=== PATIENT | male | born 1950 | race Caucasian/White ===

== ENCOUNTER 2023-12-04 11:21 | Outpatient (CLI) | payer MEDICARE, SELFPAY ==
--- NOTE | 2023-12-04 11:34 | ECG_ITS ---
Measurements Intervals Fults Rate: 70 P: 11 AZ: 155 QRS: -22 QRSD: 93 T: 22 QT: 375 QTc: 405 Interpretive Statements SINUS RHYTHM DELAYED PRECORDIAL R/S TRANSITION BASELINE ARTIFACT- I, II, III, AVR, AVL, AVF, V1, V3 BORDERLINE ECG NO PREVIOUS ECG AVAILABLE FOR COMPARISON Electronically Signed On 12-04-2023 12:46:22 CDT by John Bueno D.O.
[2023-12-04 12:04] LABS: Basophils Percent Auto 0.3 % (0.2-1.2); Eosinophils Absolute Auto 0.1 K/mm3 (0-0.3); Eosinophils Percent Auto 1.1 % (0-4.4); Hematocrit 37.2 % (42.0-52.0); Hemoglobin 12.3 g/dL (14.0-18.0); Immature Granulocyte Absolute 0.05 K/mm3 (0.00-0.031); Immature Granulocyte Percent A 0.5 % (0-0.5); Lymphocytes Absolute Auto 1.74 K/mm3 (0.9-3.2); Lymphocytes Percent Auto 18.8 % (18.3-44.2); Mean Corpuscular HGB Conc 33.1 g/dl (32-36); Mean Corpuscular Hemoglobin 30.2 pg (26-34); Mean Corpuscular Volume 91.4 fl (80-100); Mean Platelet Volume 9.2 fl (7.4-10.4); Monocytes Absolute Auto 0.6 K/mm3 (0.1-0.6); Monocytes Percent Auto 6.1 % (2.6-8.5); Neutrophils Absolute Auto 6.8 K/mm3 (1.3-6.7); Neutrophils Percent Auto 73.2 % (45.5-73.1); Platelet Count Result 516 k/mm3 (150-375); Red Blood Count 4.07 M/mm3 (4.6-6.20); Red Cell Distribution Width 13.5 % (11.5-14.5); White Blood Count 9.3 K/mm3 (4.5-10.0)
[2023-12-04 12:14] LABS: Anion Gap 5 mmol/L (8-16); Blood Urea Nitrogen 16 mg/dL (9-20); Calcium 9.6 mg/dL (8.4-10.2); Carbon Dioxide 26 mmol/L (22-30); Chloride 104 mmol/L (98-107); Estimated Glomerular Filt Rate > 60; Glucose 103 mg/dL (65-110); Potassium 4.3 mmol/L (3.4-5.0); Sodium 135 mmol/L (137-145)
[2023-12-04 12:18] LABS: INR 0.9; Prothrombin Time 12.7 Seconds (11.1-14.7)
[2023-12-04 12:19] LABS: Partial Thromboplastin Time 26.6 Seconds (22.3-36.8)
== END 2023-12-04 11:22 | disposition home or self-care (01) ==
LOC: ANHSURGERY 11:31
PROVIDERS: PCP Family Medicine; Visit Provider Urology
DX: Z01.818 Encounter for other preprocedural examination (principal); N21.0 Calculus in bladder; E78.00 Pure hypercholesterolemia, unspecified
CPT/HCPCS: 36415; 80048; 85025; 85610; 85730; 87086; 87088; 93005

== ENCOUNTER 2023-12-09 01:19 | Day surgery (SDC) | payer MEDICARE, SELFPAY ==
[2023-12-03 11:28] VITALS: BMI 26.2
--- NOTE | 2023-12-03 11:39 | PC.NURSE ---
PRE-OP INSTRUCTIONS, PLEASE READ CAREFULLY Report to the Outpatient Waiting Room, entrance under the green pavilion located off [facility], at time _1100_ on date _12/09/23_. Planned Procedure Time: _1 PM_. PACK A SMALL OVERNIGHT BAG AND LEAVE IN THE CAR Time changes happen often and if your time is changed the preop area will call you the afternoon before. - You and your visitor will be asked to self-screen and do not enter if you have any COVID symptoms. - A mask is optional within the hospital at this time. -VISITING HOURS 8AM-8PM Patients may have clear liquids (water, carbonated beverages, clear teas, apple juice) until 3 hours prior to surgery (1000 AM) with a maximum of 20 ounces. - No food from midnight until time of surgery Take the following medications with a SIP of water the morning of surgery: _NONE_ DO NOT STOP ANY OF YOUR OTHER PRESCRIPTION MEDICATIONS PRIOR TO SURGERY ?EXCEPT THE FOLLOWING Medications to discontinue per ANESTHESIA - _ALL VITAMINS AND SUPPLEMENTS 3 DAYS PRIOR TO SURGERY, Date to take last dose 12/05/23_ Please no make-up, nail thai, hairspray, perfume, deodorant, or body powder the day of surgery. No jewelry (including any body piercings) or valuables the day of surgery, leave them at home. Please take a shower or bath the night before, or the morning of, surgery with an antibacterial soap. Wear comfortable, loose fitting clothing. - Jewelry must be removed prior to entering the operating room. Rings and piercings that are not removed may be cut off. - The hospital will not accept responsibility for valuables. - Please leave all valuables, including medications, at home the day of surgery. If you are going home after surgery, a licensed school boat driver must drive you home. - NO public transportation without another adult if you receive anesthesia. - We recommend that an adult stay with you for 24 hours following discharge. - We also recommend that you do not drive, make important decision, drink alcoholic beverages, or take any drugs that were not prescribed by your health care provider for at least 24 hours after your discharge time. Follow any additional instructions given to you from your surgeon. If you or anyone in your household have experienced Covid symptoms in the past week, please notify your surgeon or the nurse liaison at the phone number below for possible testing. Telephone instructions given to _PT'S SPOUSE JOHN_and asked if any additional questions and then verbalized understanding. Patient advised to call surgeon office or pre surgery nurse liaison [phone] if any additional questions.
[2023-12-09] VITALS (12 sets, daily range): BP systolic 113–156; BP diastolic 51–79; PULSE 70–80; RESP 13–22; TEMP 35.9–37.5; O2SAT 97–100; BMI 24.9
--- NOTE | 2023-12-09 09:30 | WPDHPUPDATE1 ---
History and Physical Update Update Date/Time: 12/09/23 09:30 History and Physical has been reviewed, including an updated exam of the patient. There are NO changes in the patient's condition. Risks, benefits, and alternatives have been discussed and questions answered. Patient agrees to proceed with procedure. Proceed with cystoscopy, holmium laser of bladder stones, possible TURP
[2023-12-09] MEDS: LACTATED RINGERS 1,000 ML 30 ML IV CONT (10:45)
--- NOTE | 2023-12-09 11:47 | WPDANESEPPF ---
Anes - Initial Pre Proc Eval Procedure: Operation Date: 12/09/23 12:30 Proposed Procedures p Transurethral Resection of Prostate - Brandon Mosqueda MD s Cystoscopy, Holmium Laser Lithotripsy of Bladder Stones - Brandon Mosqueda MD Date/Time: 12/09/23 11:47 Surgeon: Brandon Mosqueda MD Pre Op Diagnosis: bladder stone, bph, retention of urine Patient Data Age: 73 Gender: M Height: 1.7 m Weight: 73.8 kg Last Vital Signs Temp 97.3 F L 12/09/23 10:50 Pulse 80 12/09/23 10:50 Resp 16 12/09/23 10:50 BP 149/67 H 12/09/23 10:50 Pulse Ox 100 12/09/23 10:50 O2 Del Method Room Air 12/09/23 10:50 Allergies Allergy/AdvReac Type Severity Reaction Status Date / Time No Known Allergies Allergy Verified 12/09/23 10:49 Home Medications Medication Instructions Recorded Confirmed Type Lactobacillus rhamnosus-Bifidobac. 1 cap PO DAILY 12/03/23 12/09/23 History animalis 3 billion cell capsule ([employer]) Prevagen 1 tab-cap DAILY 12/03/23 12/09/23 History Pro Cap Circulation & Vein Sup 1 tab-cap BID 12/03/23 12/09/23 History Pro Cap Eye Support 1 tab-cap BID 12/03/23 12/09/23 History Pro Cap Pc Liver And Brain 2 tab-cap DAILY 12/03/23 12/09/23 History Prosta Genix 1 tab-cap DAILY 12/03/23 12/09/23 History atorvastatin 20 mg tablet 20 mg DAILY 12/03/23 12/09/23 History calcium carbonate 500 mg calcium 1,000 mg PO DAILY 12/03/23 12/09/23 History (1,250 mg) chewable tablet cephalexin 500 mg capsule 500 mg Q6H 12/03/23 12/09/23 History coenzyme Q10 100 mg capsule 200 mg PO DAILY 12/03/23 12/09/23 History (CoQ-10) docusate sodium 100 mg capsule 100 mg PO BID 12/03/23 12/09/23 History gabapentin 100 mg capsule 100 mg HS 12/03/23 12/09/23 History krill oil 500 mg capsule 500 mg PO DAILY 12/03/23 12/09/23 History multivitamin 1 tablet DAILY 12/03/23 12/09/23 History Patient hx anesthesia problems: none Family hx anesthesia problems: none Results Review: All pre-operative results and documents have been reviewed as part of the pre-operative evaluation. [facility] Social History Social History Smoking status: Never smoker Second hand tobacco smoke exposure: No Alcohol intake: never Substance use: never Substance use type: does not use Living arrangements: with family Spiritual care concerns: No Anes - Eval Final PreProcedure Day of Procedure 12/09/23 11:47 Patient weight: normal Heart: regular rate and rhythm Lungs: clear to auscultation Airway: Mallampati scale class II Neurological: alert and oriented Last oral intake: >/= 8 hours ASA classification: III Emergent: no Anesthetic plan: proceed Anesthesia type and monitoring: general LMA and standard monitoring Results Review: All pre-operative results and documents have been reviewed as part of the pre-operative evaluation. Informed Consent: The patient's anesthetic plan and its attendant risks and benefits were discussed with the patient/family/POA. Questions were solicited and answers provided to the satisfaction of the patient/family/POA.
--- NOTE | 2023-12-09 15:17 | P.OP_ITS ---
Procedure Note - Detailed Date of Procedure 12/09/23 Pre-op Diagnosis bladder stone, bph, retention of urine Post-op Diagnosis Same Procedure Performed Cystoscopy, extensive holmium laser of 7 bladder calculi 2-3 cm each, transurethral resection of prostate Surgeon Brandon Mosqueda MD Anesthesia General Description of Procedure Patient was taken to the operative suite correctly identified. Once anesthesia was obtained was placed in dorsal lithotomy position and prepped and draped usual sterile fashion. Twenty-two Macanese scope was inserted in the bladder. Is difficult to inspect the bladder because it was filled with 7 large stones ranging from 2-3 cm. Using a 500 micron fiber we lasered the stones and retrieve the pieces. It filled 100 cc sterile cup. At this point I reinspected the bladder but did not see any residual stones. I then did a transurethral resection the prostate by exchanging scope up for a 24 Macanese resectoscope sheath. I resected from the bladder neck to the verumontanum circumferentially. Hemostasis was achieved using electrocautery. I then reinspected the bladder in noted that there was a another large stone which was actually stuck in the diverticulum. At this point there was some oozing from the prostatic bed or the TURP was done and I could not visualize at complete take care stone in this. Was decided to terminate the procedure to address at a later point time. 2% viscous lidocaine was inserted into the urethra. Twenty-four Macanese [address] was placed with 20 cc in balloon. This was connected to continuous bladder irrigation. He was taken recovery room in stable condition. This completes dictation. Please send a copy of op note to my office. Estimated Blood Loss 25 Drains Yes Packing No Pathology Yes Complications No immediate complications Condition Stable Disposition PACU
[2023-12-09] MEDS: LIDOCAINE HCL 2% GEL UROJET 10 ML PKG MUCOUS MEM (15:20)
[2023-12-09] MEDS: ONDANSETRON INJ 4 MG/2 ML VIAL IV PUSH (15:57)
[2023-12-09] MEDS: fentaNYL CITRATE INJ (*CRX) 100 MCG/2 ML VIAL 25 MCG IV PUSH ×3 (15:59→16:39)
--- NOTE | 2023-12-09 17:05 | ADMGEN ---
This patient, Brown Balderas, was admitted to [facility] Surg Room 302-01. Patient/family oriented to hospital policies and general routines including ID bracelet, bed and alarms, visiting hours, pain management, procedures, bathroom and other care routines, personal items, smoking policy, room service/diet, and visiting hours. Information on how to activate the Rapid Response Team has been discussed. Patient/Family are encouraged to report perceived risks to care and to ask questions if they do not understand what they are told or what they should do.
--- NOTE | 2023-12-09 18:37 | PC.NURSE ---
On 12/09/23, the HYDROELECTRIC OPERATOR, JOSE GUERRERO provided care and completed [employer] documentation on this patient. I have reviewed the HYDROELECTRIC OPERATOR's documentation and agree with the findings.
--- NOTE | 2023-12-09 18:39 | PC.NURSE ---
On 12/09/23, the WELFARE ADMINISTRATOR, JOSE GUERRERO provided care and completed [employer] documentation on this patient. I have reviewed the WELFARE ADMINISTRATOR's documentation and agree with the findings.
[2023-12-09] MEDS: DEXTROSE 5%/LACTATED RINGERS 1,000 ML 125 ML IV CONT (19:02)
[2023-12-09] MEDS: DOCUSATE SODIUM 100 MG CAPSULE PO (19:05)
[2023-12-09] MEDS: ceFAZolin 1 GM/NS 50 ML 1 GM/50 ML BAG IVPB (19:05)
[2023-12-09] MEDS: GABAPENTIN 100 MG CAPSULE BY MOUTH (20:50)
[2023-12-10] MEDS: ceFAZolin 1 GM/NS 50 ML 1 GM/50 ML BAG IVPB (01:13)
[2023-12-10 02:32] VITALS: BP 117/53; PULSE 73; RESP 13; TEMP 37.1; O2SAT 99
[2023-12-10] MEDS: DEXTROSE 5%/LACTATED RINGERS 1,000 ML 125 ML IV CONT (05:12)
[2023-12-10 05:48] VITALS: BP 124/53; PULSE 75; RESP 12; TEMP 37.2; O2SAT 99
[2023-12-10 07:17] LABS: Hematocrit 32.8 % (42.0-52.0); Hemoglobin 10.6 g/dL (14.0-18.0)
[2023-12-10 07:45] VITALS: BP 116/50; PULSE 72; RESP 18; TEMP 35.8; O2SAT 99
[2023-12-10 07:46] LABS: Anion Gap 2 mmol/L (8-16); Blood Urea Nitrogen 9 mg/dL (9-20); Calcium 8.2 mg/dL (8.4-10.2); Carbon Dioxide 26 mmol/L (22-30); Chloride 105 mmol/L (98-107); Estimated CRCL calculation 66 ml/min; Estimated Glomerular Filt Rate > 60; Glucose 127 mg/dL (65-110); Potassium 3.5 mmol/L (3.4-5.0); Sodium 133 mmol/L (137-145)
--- NOTE | 2023-12-10 08:15 | WPDUROPN2 ---
Progress Note: A&P Assessment and Plan (1) Bladder calculi: Code(s): N21.0 - Calculus in bladder Status: Acute Assessment and Plan: Postop day 1 from extensive holmium laser of at least 7 large bladder calculi 2-3 cm each. He has 1 -2residual stone which will need to be addressed at a later point time. (2) Urinary retention: Code(s): R33.9 - Retention of urine, unspecified Status: Acute Assessment and Plan: Postop day 1. From TURP. Urine is clear at this time. Hold CBI. If remains clear will discharge home with Gutiérrez catheter. Will schedule holmium laser of residual bladder stones in the next week or 2. Subjective Subjective Date/Time Seen: 12/10/23 08:15 Post Op day: 1 (Holmium laser bladder stones and TURP) Principal diagnosis: Significant bladder stones with urinary retention Interval history: Doing well postoperative day 1. Urine is clear with minimal CBI. Will hold off on CBI this. Review of Systems Review of Systems: All systems reviewed & are unremarkable except as noted in HPI and below Exam Const: General: comfortable Resp: Effort & Inspection: normal respiratory effort Cardio: Rate: regular rate Rhythm: regular rhythm Urinary Catheter: Urinary Catheter: patent and draining and urine clear Objective Data Vital Signs Vital Signs: Vital Signs - 24 hr 12/09/23 10:50 12/09/23 15:16 12/09/23 15:31 Temperature 36.3 C L 37.5 C Pulse Rate 80 73 76 Respiratory Rate 16 21 H 15 Blood Pressure 149/67 H 113/51 L 133/79 Pulse Oximetry 100 100 100 Oxygen Delivery Room Air Simple Face Mask Simple Face Mask Oxygen Flow Rate 10 10 12/09/23 15:46 12/09/23 16:01 12/09/23 16:16 Temperature Pulse Rate 74 70 70 Respiratory Rate 17 15 21 H Blood Pressure 140/70 139/65 128/65 Pulse Oximetry 97 100 99 Oxygen Delivery Room Air Room Air Room Air Oxygen Flow Rate 12/09/23 16:32 12/09/23 16:47 12/09/23 16:58 Temperature 35.9 C L Pulse Rate 74 74 72 Respiratory Rate 22 H 17 16 Blood Pressure 139/62 139/64 156/76 H Pulse Oximetry 100 100 100 Oxygen Delivery Room Air Room Air Oxygen Flow Rate 12/09/23 17:13 12/09/23 17:43 12/09/23 22:08 Temperature 36.2 C L 36.1 C L 36.9 C Pulse Rate 71 78 75 Respiratory Rate 16 16 13 Blood Pressure 140/62 141/66 H 127/60 Pulse Oximetry 97 100 100 Oxygen Delivery Oxygen Flow Rate 12/09/23 20:00 12/10/23 02:32 12/10/23 05:48 Temperature 37.1 C 37.2 C Pulse Rate 73 75 Respiratory Rate 13 12 Blood Pressure 117/53 L 124/53 L Pulse Oximetry 99 99 Oxygen Delivery Room Air Oxygen Flow Rate Intake/Output Intake/Output: Intake & Output 12/07/23 12/08/23 12/09/23 12/10/23 23:59 23:59 23:59 23:59 Intake Total 400 2000 Output Total 3475 1800 Balance -3075 200 Meds/Results Medications: Active Medications Generic Name Dose Route Start Last Admin Trade Name Freq PRN Reason Stop Dose Admin Hydrocodone Bitart/Acetaminophen 1 tab 12/09/23 16:58 Hydrocodone/Acetaminophen (*Crx) 5-325 Mg Tablet PO Q4H PRN Pain Rated 1-6 Atorvastatin Calcium 20 mg 12/10/23 09:00 Atorvastatin 20 Mg Tablet BY MOUTH DAILY SHA Cephalexin HCl 500 mg 12/10/23 09:00 Cephalexin 500 Mg Capsule PO QID SHA Docusate Sodium 100 mg 12/09/23 17:00 12/09/23 19:05 Docusate Sodium 100 Mg Capsule PO 100 mg BID SHA Administration Gabapentin 100 mg 12/09/23 21:00 12/09/23 20:50 Gabapentin 100 Mg Capsule BY MOUTH 100 mg HS SHA Administration Hyoscyamine 0.125 mg 12/09/23 16:58 Hyoscyamine Sulfate 0.125 Mg Tablet SUBLINGUAL Q6H PRN Bladder Spasm Dextrose/Lactated Ringer's 1,000 mls @ 125 mls/hr 12/09/23 16:58 12/10/23 05:13 Dextrose 5%/Lactated Ringers IV CONT Not Given .Q8H SHA Morphine Sulfate 2 mg 12/09/23 16:58 Morphine Sulfate (*Crx) 2 Mg/Ml Inj IV PUSH Q2H PRN Pain Rated 7-10 Naloxone HCl 0.1 mg
[2023-12-10] MEDS: CEPHALEXIN 500 MG CAPSULE PO ×2 (08:33→12:06)
[2023-12-10] MEDS: DOCUSATE SODIUM 100 MG CAPSULE PO (08:34)
[2023-12-10] MEDS: ATORVASTATIN 20 MG TABLET BY MOUTH (08:34)
[2023-12-10 10:43] VITALS: BP 121/53; PULSE 76; RESP 18; TEMP 36.2; O2SAT 97
--- NOTE | 2023-12-10 11:55 | PM.DS ---
DS: Admitting Diagnosis Discharge Date 12/10/2023 Admitting Diagnosis Bladder stone, BPH, retention of urine DS: Discharge Diagnosis Discharge Diagnosis (1) Bladder calculi: Code(s): N21.0 - Calculus in bladder Status: Acute Assessment and Plan: Postop day 1 from extensive holmium laser of at least 7 large bladder calculi 2-3 cm each. He has 1 -2 residual stone which will need to be addressed at a later point time. (2) Urinary retention: Code(s): R33.9 - Retention of urine, unspecified Status: Acute Assessment and Plan: Postop day 1 from TURP. Urine remained clear off CBI. Will discharge home with Rios catheter. Will schedule holmium laser of residual bladder stones in the next 1-2 weeks. (3) BPH (benign prostatic hyperplasia): Code(s): N40.0 - Benign prostatic hyperplasia without lower urinary tract symptoms Status: Acute Assessment and Plan: S/p TURP. DS: Summary Hospital Course Hospital Course: Brown Balderas is a 73 year old male with BPH, urinary retention, and bladder stones. He underwent cystoscopy, holmium laser of bladder stones, and TURP on 12/09/[address] Mosqueda. He tolerated the procedure well. He was started on CBI postoperatively. Urine cleared and CBI was discontinued on postoperative day 1. Urine remained clear off CBI. He still has 1-2 residual bladder stones and will need follow up with Dr. Mosqueda in 1-2 weeks to arrange treatment. He was feeling improved and felt comfortable with plans for discharge home. He was discharged with rios catheter which he will continue until follow up. Return precautions given. He will complete a course of Bactrim. Short course of analgesics provided. All questions answered and he was discharged home in stable condition. Time Spent with Patient Time attestation: Total time spent providing and/or coordinating discharge services: Exam Narrative: General: Awake, alert, comfortable, no acute distress HEENT: Normocephalic, atraumatic, sclerae anicteric Respiratory: Normal respiratory effort, no accessory muscle use Abdomen: Nondistended, soft, nontender : Rios catheter patent and draining straw colored urine with scant amount of sediment noted in tubing Skin: Normal coloration, warm and dry Neurologic: No focal neuro deficits noted Psychiatric: Appropriate mood and affect, judgment and insight intact DS: Data Data Completed and Pending Pending studies at discharge: Pending at discharge 12/09/23 13:40 Surgical [PTH] Routine Surgical [PTH] Routine Labs on day of discharge: Labs from last 24 hours 12/10/23 06:36 Hgb 10.6 L Hct 32.8 L Sodium 133 L Potassium 3.5 Chloride 105 Carbon Dioxide 26 Anion Gap 2 L BUN 9 D Creatinine 0.80 Estim Creat Clear Calc 66 Estimated GFR > 60 Glucose 127 H Calcium 8.2 L Discharge Plan Discharge Patient Disposition: Home, Self-Care Discharge Instructions: Begin taking Bactrim once per day for the the next 7 days You can take Belcher as needed for moderate-severe pain. Do not drive or drink alcohol while taking this medication Follow up with Dr. Mosqueda in 2 weeks Call office or go to ER if you have passage of large blood clots or your catheter is not draining. Stand Alone Forms: General Discharge Instructions Follow-up/Referrals: Brandon Mosqueda MD [Physician] - 2 Weeks Discharge Medications: New hydrocodone-acetaminophen 5-325 mg Tablet 1 tablet PO Q6H PRN (Reason: Pain Rated 1-6) Qty: 20 0RF sulfamethoxazole-trimethoprim [Bactrim DS] 800-160 mg tablet 1 tablet PO DAILY Qty: 7 0RF Continued multivitamin Tablet 1 tablet DAILY atorvastatin 20 mg tablet 20 mg DAILY docusate sodium 100 mg Capsule 100 mg PO BID calcium carbonate 500 mg calcium (1,250 mg) Tablet,Chewable 1,000 mg PO DAILY gabapentin 100 mg capsule 100 mg HS coenzyme Q10 [CoQ-
== END 2023-12-10 13:10 | disposition home or self-care (01) ==
LOC: ANHSURGERY 10:06 → ANH3MEDSUR 17:24
PROVIDERS: PCP Family Medicine; Visit Provider Urology
PROC: 0VT08ZZ Resection of Prostate, Via Natural or Artificial Opening Endoscopic (ICD-10-PCS; CPT 52601; principal; 2023-12-09 12:30)
PROC: 0TCB8ZZ Extirpation of Matter from Bladder, Via Natural or Artificial Opening Endoscopic (ICD-10-PCS; CPT 52352; 2023-12-09 12:30)
DX: N40.1 Benign prostatic hyperplasia with lower urinary tract symptoms (principal); R33.8 Other retention of urine; N21.0 Calculus in bladder; N41.1 Chronic prostatitis; N34.2 Other urethritis
CPT/HCPCS: 52601; 52318; 36415; 80048; 82365; 85014; 85018; 88300; 88305; A9270; J0690; J2405; J3010; J7120; J7121

== ENCOUNTER 2023-12-26 13:08 | Outpatient (CLI) | payer MEDICARE, SELFPAY | END 2023-12-26 13:09 | disposition home or self-care (01) | LOC: ANHSURGERY 13:09 | PROVIDERS: PCP Family Medicine; Visit Provider Urology | DX: Z01.818 Encounter for other preprocedural examination (principal); N21.0 Calculus in bladder | CPT/HCPCS: 87077; 87086; 87186 ==

== ENCOUNTER 2023-12-30 00:54 | Day surgery (SDC) | payer MEDICARE, SELFPAY ==
--- NOTE | 2023-12-26 10:53 | PC.NURSE ---
PRE-OP INSTRUCTIONS, PLEASE READ CAREFULLY Report to the Outpatient Waiting Room, entrance under the green pavilion located off [facility], at time _0800_ on date _12/30/23_. Planned Procedure Time: _1000_. Time changes happen often and if your time is changed the preop area will call you the afternoon before. - You and your visitor will be asked to self-screen and do not enter if you have any COVID symptoms. - A mask is optional within the hospital at this time. Patients may have clear liquids (water, carbonated beverages, clear teas, apple juice) until 3 hours prior to surgery (0700 AM) with a maximum of 20 ounces. - No food from midnight until time of surgery Take the following medications with a SIP of water the morning of surgery: _NONE_ DO NOT STOP ANY OF YOUR OTHER PRESCRIPTION MEDICATIONS PRIOR TO SURGERY ?EXCEPT THE FOLLOWING Medications to discontinue per ANESTHESIA - _MULTIVITAMIN AND SUPPLEMENTS 3 DAYS PRIOR TO SURGERY, Date to take last dose 12/26/23_ Please no make-up, nail niuean, hairspray, perfume, deodorant, or body powder the day of surgery. No jewelry (including any body piercings) or valuables the day of surgery, leave them at home. Please take a shower or bath the night before, or the morning of, surgery with an antibacterial soap. Wear comfortable, loose fitting clothing. - Jewelry must be removed prior to entering the operating room. Rings and piercings that are not removed may be cut off. - The hospital will not accept responsibility for valuables. - Please leave all valuables, including medications, at home the day of surgery. If you are going home after surgery, a licensed services delivery driver must drive you home. - NO public transportation without another adult if you receive anesthesia. - We recommend that an adult stay with you for 24 hours following discharge. - We also recommend that you do not drive, make important decision, drink alcoholic beverages, or take any drugs that were not prescribed by your health care provider for at least 24 hours after your discharge time. Follow any additional instructions given to you from your surgeon. If you or anyone in your household have experienced Covid symptoms in the past week, please notify your surgeon or the nurse liaison at the phone number below for possible testing. Telephone instructions given to _PATIENT_and asked if any additional questions and then verbalized understanding. Patient advised to call surgeon office or pre surgery nurse liaison [phone] if any additional questions.
[2023-12-26 10:56] VITALS: BMI 26.5
[2023-12-30] VITALS (7 sets, daily range): BP systolic 127–150; BP diastolic 61–75; PULSE 60–87; RESP 16–18; TEMP 36.3; O2SAT 99–100; BMI 24.5
--- NOTE | 2023-12-30 07:22 | WPDHPUPDATE1 ---
History and Physical Update Update Date/Time: 12/30/23 07:22 History and Physical has been reviewed, including an updated exam of the patient. There are NO changes in the patient's condition. Risks, benefits, and alternatives have been discussed and questions answered. Patient agrees to proceed with procedure. Proceed with cysto, holmium laser of bladder stone
[2023-12-30] MEDS: LACTATED RINGERS 1,000 ML 30 ML IV CONT ×2 (08:25→11:21)
[2023-12-30] MEDS: ceFAZolin 2 GM/D5W 50 ML 2 GM/50 ML BAG IVPB (09:20)
--- NOTE | 2023-12-30 09:22 | WPDANESEPPF ---
Anes - Initial Pre Proc Eval Procedure: Operation Date: 12/30/23 10:00 Proposed Procedures p Cystoscopy, Bladder Stones Extraction with Holmium Laser - Brandon Mosqueda MD Date/Time: 12/30/23 09:22 Surgeon: Brandon Mosqueda MD Pre Op Diagnosis: bladder stones Patient Data Age: 73 Gender: M Height: 1.7 m Weight: 71.2 kg Last Vital Signs Temp 97.3 F L 12/30/23 08:00 Pulse 60 12/30/23 08:00 Resp 16 12/30/23 08:00 BP 136/66 12/30/23 08:00 Pulse Ox 100 12/30/23 08:00 O2 Del Method Room Air 12/30/23 08:00 Allergies Allergy/AdvReac Type Severity Reaction Status Date / Time No Known Allergies Allergy Verified 12/30/23 08:48 Home Medications Medication Instructions Recorded Confirmed Type Lactobacillus rhamnosus-Bifidobac. 1 cap PO DAILY 12/03/23 12/30/23 History animalis 3 billion cell capsule ([employer]) Prevagen 1 tab-cap DAILY 12/03/23 12/30/23 History Pro Cap Circulation & Vein Sup 1 tab-cap BID 12/03/23 12/30/23 History Pro Cap Eye Support 1 tab-cap BID 12/03/23 12/30/23 History Pro Cap Pc Liver And Brain 2 tab-cap DAILY 12/03/23 12/30/23 History Prosta Genix 1 tab-cap DAILY 12/03/23 12/30/23 History atorvastatin 20 mg tablet 20 mg DAILY 12/03/23 12/26/23 History calcium carbonate 500 mg calcium 1,000 mg PO DAILY 12/03/23 12/30/23 History (1,250 mg) chewable tablet coenzyme Q10 100 mg capsule 200 mg PO DAILY 12/03/23 12/30/23 History (CoQ-10) docusate sodium 100 mg capsule 100 mg PO BID 12/03/23 12/26/23 History gabapentin 100 mg capsule 100 mg HS 12/03/23 12/26/23 History krill oil 500 mg capsule 500 mg PO DAILY 12/03/23 12/30/23 History multivitamin 1 tablet DAILY 12/03/23 12/30/23 History Patient hx anesthesia problems: none Family hx anesthesia problems: none Results Review: All pre-operative results and documents have been reviewed as part of the pre-operative evaluation. [facility] Social History Social History Smoking status: Never smoker Second hand tobacco smoke exposure: No Alcohol intake: never Substance use: never Substance use type: does not use Do You Feel Safe in your Home?: Yes Lack of Transportation: No Lack of Food: Never True Current Housing: I Have Housing Concerned About Future Housing: No Difficulty Paying Gas/Electric Bills: No Difficulty Paying for Meds: No Currently Unemployed: No Education: Decline to Answer Difficulty w/ Childcare or Family Care: No Living arrangements: with family Spiritual care concerns: No Anes - Eval Final PreProcedure Day of Procedure 12/30/23 09:22 Patient weight: normal Heart: regular rate and rhythm Lungs: clear to auscultation Airway: Mallampati scale class II Neurological: alert and oriented Last oral intake: >/= 8 hours ASA classification: III Emergent: no Anesthetic plan: proceed Anesthesia type and monitoring: general LMA and standard monitoring Results Review: All pre-operative results and documents have been reviewed as part of the pre-operative evaluation. Informed Consent: The patient's anesthetic plan and its attendant risks and benefits were discussed with the patient/family/POA. Questions were solicited and answers provided to the satisfaction of the patient/family/POA.
[2023-12-30] MEDS: LIDOCAINE HCL 2% GEL UROJET 10 ML PKG MUCOUS MEM (09:48)
--- NOTE | 2023-12-30 11:18 | P.OP_ITS ---
Procedure Note - Detailed Date of Procedure 12/30/23 Pre-op Diagnosis bladder stones, residual prostatic tissue Post-op Diagnosis Same Procedure Performed Holmium laser of 2 large bladder stones 2 cm and 3 cm, resection of residual prostatic tissue on left lobe, complex Gutiérrez catheter placement Surgeon Brandon Mosqueda MD Anesthesia General Description of Procedure Patient was taken the operative suite and correctly identified. Once anesthesia was obtained was placed in dorsal lithotomy position prepped draped usual sterile fashion. Twenty-two [place] scope was inserted the bladder. He has a large 3 cm stone on the floor at this time. He also has another 2 cm stone lodged in a diverticulum. Using the 500 micron fiber I lasered the stones. These were then retrieved with an [employer] evacuator. There was no significant stone burden left at the termination of this. I then noted that there was some residual prostatic tissue on the left lobe which I resected. The sent for analysis. Hemostasis was achieved using electrocautery. 2% viscous lidocaine was inserted urethra to [address] This connected continuous bladder irrigation. He is taken recovery stable condition. If his urine clears in go home with a Gutiérrez catheter and have that removed on Friday. This completes dictation please send a copy this to my office thank you Estimated Blood Loss 25 Drains Yes Packing No Pathology Yes Complications No immediate complications Condition Stable Disposition PACU
== END 2023-12-30 13:20 | disposition home or self-care (01) ==
PROVIDERS: PCP Family Medicine; Visit Provider Urology
PROC: 0TCB8ZZ Extirpation of Matter from Bladder, Via Natural or Artificial Opening Endoscopic (ICD-10-PCS; CPT 52352; principal; 2023-12-30 10:00)
DX: N21.0 Calculus in bladder (principal); N40.0 Benign prostatic hyperplasia without lower urinary tract symptoms
CPT/HCPCS: 52318; 52630; 82365; 88300; 88305; C1758; J0461; J0690; J1100; J2371; J2405; J2704; J3010; J7120